=== PATIENT | female | born 2000 | race Caucasian/White ===

== ENCOUNTER 2021-01-07 21:59 | Emergency (ER) | payer BC ==
[~2021-01-07] VITALS: Ht 157.5 cm; Wt 107.8 kg
[~2021-01-07 21:59] MED LIST: AMOX1TAB61 PO
--- NOTE | 2021-01-07 22:02 | PHYS DOC ---
Past History Past Medical History: No Pertinent History Past Surgical History: No Surgical History Smoking: Non-smoker Alcohol Use: None Drug Use: None Adult General [facility] HPI Patient is a 20-year-old female a past medical history of asthma presents with asthma exacerbation which started earlier in the day but states she is out of her albuterol and had not been able to make it to her doctor. Denies any recent trauma, travels, illnesses, fevers, chest pain, shortness of breath other than mild wheezing, abdominal pain, nausea, vomiting, diarrhea. Review of Systems Review of Systems Review of systems otherwise unremarkable except noted in HPI Allergies Allergies Allergies Coded Allergies Type Severity Reaction Last Updated Verified No Known Drug Allergies 08/17/15 No Physical Exam Physical Exam Constitutional: Well developed, well nourished, no acute distress, non-toxic appearance. [] HENT: Normocephalic, atraumatic, bilateral external ears normal, oropharynx moist, no oral exudates, nose normal. [] Eyes: conjunctiva normal, no discharge. [] Neck: Normal range of motion, no tenderness, supple, no stridor. [] Cardiovascular:Heart rate regular rhythm, no murmur [] Lungs & Thorax: Bilateral breath sounds clear to auscultation [] Abdomen: soft, no tenderness, no masses, no pulsatile masses. [] Skin: Warm, dry, no erythema, no rash. [] Neurologic: Alert and oriented X 3, no focal deficits noted. [] Psychologic: Affect normal, judgement normal, mood normal. [] EKG EKG [] Radiology/Procedures Radiology/Procedures [] Heart Score C/O Chest Pain: No Risk Factors: Risk Factors: DM, Current or recent (<one month) smoker, HTN, HLP, family history of CAD, obesity. Risk Scores: Risk Factors: DM, Current or recent (<one month) smoker, HTN, HLP, family hist ory of CAD, obesity. Course & Med Decision Making Course & Med Decision Making Patient is a 20-year-old female presents with asthma exacerbation Vital signs initially notable for tachycardia 128 which improved in the ED. Yair Sylvester. Given steroids. Given albuterol inhaler and MDI and instruction on proper usage. Given prescription for albuterol at home. Advised to follow-up in the morning with primary care physician and set up a follow-up ED visit. Gave return precautions to the ED. Patient grateful, verbalized understanding agree with plan discharge. Dragon Disclaimer Dragon Disclaimer This electronic medical record was generated, in whole or in part, using a voice recognition dictation system. Departure Departure: Impression: Primary Impression: Asthma exacerbation Disposition: HOME / SELF CARE / HOMELESS Condition: GOOD Referrals: YVETTE NATION MD (PCP) Patient Instructions: Asthma Attacks, Prevention, Asthma, Adult Additional Instructions: Thank you for coming into the emergency department signed allowing us to take care of you. Please read the attached information carefully to go back over some of the things we discussed. Please be sure to take all your asthma medications as prescribed. Scripts Albuterol Sulfate (PROVENTIL HFA INHALER) 6.7 Gm Hfa.aer.ad 1 PUFF INH PRN Q4HRS PRN for FOR ASTHMA for 7 Days, EACH 5 Refills Prov: BENJIE SEBASTIAN MD 01/07/21 BENJIE SEBASTIAN MD Jan 07, 2021 22:02
[2021-01-07] MEDS ORDERED: ALBUTEROL SULFATE 8GM INHALER. ONE (22:12)
[2021-01-07] MEDS ORDERED: IPRATRPIUM/ALBUTEROL 0.5/2.5MG 3 ML NEBU. NEB ONE ×2 (22:15→22:45)
[2021-01-07] MEDS ORDERED: DEXAMETHASONE 4 MG TABLET PO ONE (22:45)
[2021-01-07] MEDS ORDERED: ALBU2.5V8 INH (23:07)
[2021-01-07 23:30] VITALS: BP 140/82
[2021-01-07] MEDS ORDERED: ALBUTEROL SULFATE 8GM INHALER. INH ONE (23:45)
== END 2021-01-07 23:37 | disposition home or self-care (01) ==
LOC: ER 21:59
DX: J45.901 Unspecified asthma with (acute) exacerbation (principal)
CPT/HCPCS: 94640; 99285; J8540; 94664